=== PATIENT | female | born 1960 | race Asian ===

== ENCOUNTER 2024-12-11 11:12 | Emergency (ER) | payer OTHER ==
[~2024-12-11] VITALS: Ht 160 cm; Wt 48.1 kg
[2024-12-11 11:55] VITALS: TEMP 98.6
[2024-12-11 12:52] LABS: BASOPHILS % 0.6 % (0.0-1.0); EOSINOPHILS % 0.6 % (0.0-6.0); HEMATOCRIT 37.4 % (34.2-44.1); HEMOGLOBIN 11.8 g/dL (12.0-16.0); LYMPHOCYTES # (AUTO) 1.5 (1.0-3.2); LYMPHOCYTES % 41.3 % (18.0-39.1); MEAN CORPUSCULAR HEMOGLOBIN 23.3 pg (28-32); MEAN CORPUSCULAR HGB CONC 31.6 g/dL (31-35); MEAN CORPUSCULAR VOLUME 73.9 fL (81-99); MONOCYTES # (AUTO) 0.3 (0.2-0.8); MONOCYTES % 7.8 % (4.4-11.3); NEUTROPHILS # (AUTO) 1.8 (2.1-6.9); NEUTROPHILS % 49.7 % (38.7-80.0); PLATELET COUNT 205 x10e3/uL (140-360); RED BLOOD COUNT 5.06 x10e6/uL (3.6-5.1); RED CELL DISTRIBUTION WIDTH 13.3 % (11.7-14.4); WHITE BLOOD COUNT 3.61 x10e3/uL (4.8-10.8)
[2024-12-11 13:05] LABS: INR 0.91; PROTHROMBIN TIME 12.8 seconds (11.9-14.5)
[2024-12-11 13:06] LABS: PARTIAL THROMBOPLASTIN TIME 29.2 seconds (23.8-35.5)
[2024-12-11 13:23] LABS: ALBUMIN 4.3 g/dL (3.5-5.0); ALBUMIN/GLOBULIN RATIO 1.3 (0.8-2.0); ANION GAP 14.8 mmol/L (8-16); BILIRUBIN,TOTAL 0.4 mg/dL (0.2-1.2); CALCIUM 9.2 mg/dL (8.4-10.2); CREATININE, SERUM 0.84 mg/dL (0.57-1.11); MAGNESIUM 2.4 MG/DL (1.3-2.1); POTASSIUM 3.8 mmol/L (3.5-5.1); TOTAL PROTEIN 7.6 g/dL (6.5-8.1)
[2024-12-11 13:45] LABS: THYROID STIMULATING HORMONE 0.323 uIU/mL (0.350-4.940); TROPONIN I 0.01 ng/mL (0-0.300)
[2024-12-11 14:04] LABS: BILIRUBIN,URINE NEGATIVE (NEGATIVE); CLARITY,URINE CLEAR (CLEAR); COLOR,URINE YELLOW (YELLOW); GLUCOSE, URINE NEGATIVE (NEGATIVE); KETONES,URINE NEGATIVE (NEGATIVE); LEUKOCYTE ESTERASE ,URINE NEGATIVE (NEGATIVE); NITRITE,URINE NEGATIVE (NEGATIVE); PH,URINE 7 (5 - 7); PROTEIN,URINE DIPSTICK NEGATIVE (NEGATIVE); URINE UROBILINOGEN 0.2 mg/dL (0.2 - 1)
[2024-12-11 14:07] LABS: EPITHELIAL CELLS,URINE FEW /LPF; RBC,URINE 0-5 /HPF (0-5); WBC,URINE (MAN) 0-5 /HPF (0-5)
[2024-12-11] MEDS: SODIUM CHLORIDE 0.9% 1000ML 1,000 ML IV STA (14:59)
[2024-12-11 15:03] LABS: AMPHETAMINES SCREEN,URINE NEGATIVE (NEGATIVE); BENZODIAZEPINES SCREEN,URINE NEGATIVE (NEGATIVE); CANNABINOIDS SCREEN,URINE NEGATIVE (NEGATIVE); COCAINE SCREEN,URINE NEGATIVE (NEGATIVE); METHADONE SCREEN, URINE NEGATIVE (NEGATIVE); OPIATES SCREEN,URINE NEGATIVE (NEGATIVE); PHENCYCLIDINE SCREEN,URINE NEGATIVE (NEGATIVE)
[2024-12-11] MEDS ORDERED: ONDANSETRON ODT4 MG PO (16:29)
[2024-12-11] MEDS ORDERED: DICYCLOMINE HCL20 MG PO (16:29)
[2024-12-11 16:35] VITALS: PULSE 79; RESP 18; O2SAT 97
[2024-12-11] MEDS: KETOROLAC TROMETHAMINE 30 MG/ML VIAL IV STA (16:35)
== END 2024-12-11 16:54 | disposition home or self-care (01) ==
LOC: ER 12:19
DX: R10.11 Right upper quadrant pain (principal); K80.50 Calculus of bile duct without cholangitis or cholecystitis without obstruction; M79.651 Pain in right thigh
CPT/HCPCS: 36415; 70450; 71045; 74177; 76705; 80053; 80307; 81001; 82550; 83690; 83735; 84443; 84484; 85025; 85610; 85730; 87086; 93005; 99284; J1885; J7030